=== PATIENT | male | born 1970 | race Caucasian/White ===

== ENCOUNTER 2020-12-24 06:35 | Day surgery (SDC) | payer BC, SELFPAY ==
--- NOTE | 2020-12-23 10:17 | P.CONAN_ITS ---
Documented by User: Ana Maria Pinzon NP 12/23/20 10:18 HPI - Anesthesia Eval Consult details Narrative: 50yo M for Upper Endoscopy and Colonoscopy [facility] Past Medical History Medical History (Updated 12/16/20 @ 08:15 by Natalee Bashir, RN) GERD (gastroesophageal reflux disease) History of kidney stones Iron deficiency anemia PUD (peptic ulcer disease) Surgical History Surgical History (Updated 12/16/20 @ 08:15 by Natalee Bashir, RN) No significant past surgical history Social History Social History (Updated 12/24/20 @ 07:59 by Luciana Weinstein MD) Patient Tobacco Use Status: Never used Tobacco Use of substances other than those prescribed or required for medical reasons: No 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 Are you DNR?: No Advance Directives: No Advance Directives Information Provided: Yes Recently lost weight without trying: No Nutrition Risks: No Nutritional Risk Meds Allergies Allergy/AdvReac Type Severity Reaction Status Date / Time No Known Allergies Allergy Verified 12/16/20 08:16 Home Medications Medication Instructions Recorded Confirmed Last Taken Type ibuprofen 12/16/20 12/16/20 Unknown History Exam Exam Date and Time: December 23, 2020 1017 Assessment and Plan Assessment Anesthesia Assessment: Chart Reviewed Documented by User: Luciana Weinstein MD 12/24/20 08:01 [facility] Past Medical History Medical History (Updated 12/16/20 @ 08:15 by Natalee Bashir RN) GERD (gastroesophageal reflux disease) History of kidney stones Iron deficiency anemia PUD (peptic ulcer disease) Family History Family history of problems with anesthesia: No Surgical History Surgical History (Updated 12/16/20 @ 08:15 by Natalee Bashir, RN) No significant past surgical history History of Problems with Anesthesia: No Social History Social History (Updated 12/24/20 @ 07:59 by Luciana Weinstein MD) Patient Tobacco Use Status: Never used Tobacco Use of substances other than those prescribed or required for medical reasons: No 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 Are you DNR?: No Advance Directives: No Advance Directives Information Provided: Yes Recently lost weight without trying: No Nutrition Risks: No Nutritional Risk Meds Allergies Allergy/AdvReac Type Severity Reaction Status Date / Time No Known Allergies Allergy Verified 12/16/20 08:16 Home Medications Medication Instructions Recorded Confirmed Last Taken Type ibuprofen 12/16/20 12/16/20 Unknown History Exam Height,Weight and Vital Signs: Height 6 ft 2 in Weight 111.13 kg Vital Signs Temp Pulse Resp BP Pulse Ox 12/24/20 06:48 98.2 F 82 16 148/82 H 98 Airway Mallampati Class: III TM Dist: >3cm Neck ROM: Full Heart: RRR Lungs: CTAB Assessment and Plan Final Anesthetic Review Family History of Problems with Anesthesia: No History of Problems with Anesthesia: No NPO: Yes ASA Class: III Final Preanesthetic Review: No Changes in Pt Med Stat, Meds/Allgs Chart Reviewed, Consent Obtained/Reviewed and Anes Risks/Benef Reviewed Patient Risk: Intermediate Procedure Risk: Low Assessment/Block/Sedation in SS: Assess/Block/Sedation-SS Anesthetic Plan Anesthetic Plan: MAC: Disposition: Standard PACU
[2020-12-24 06:45] VITALS: BMI 31.4
[2020-12-24 06:48] VITALS: BP 148/82; PULSE 82; RESP 16; TEMP 36.8; O2SAT 98
[2020-12-24] MEDS: Lactated Ringers 1,000 ML 100 ML IVCONT (07:02)
--- NOTE | 2020-12-24 07:23 | MHC.SHP ---
Pre-Procedural Eval Section A Date of Service: 12/24/20 Section B Chief Complaint: reflux,animia Details of Present Illness: see H&P no changes Relevant Family History (Specify if Yes): No Relevant Social History: None Present Medications: see Short Stay Collaborative assessment Medical History: No relevant PMH History of Previous Operations: No relevant previous surgery Allergies: Allergies Allergy/AdvReac Type Severity Reaction Status Date / Time No Known Allergies Allergy Verified 12/16/20 08:16 Review of Systems Sugical H&P ROS: Negative: Constitution, Cardiovascular, Respiratory, Neurological, Psychiatric, Hem-Onc, Allergic/Immunologic, Gastrointestinal, Genitourinary, Musculoskeletal, Integumentary, Endocrine and Eyes/Ears/Nose/Throat Exam Surgical H&P Exam: Normal: HEENT, Normal: Heart, Normal: Lungs, Normal: Extremities, Normal: Abdomen, Normal: Skin and Normal: Neurological Plan I have reviewed the history and physical and performed a pertinent physical examination on my patient. No changes have occurred unless specified.
--- NOTE | 2020-12-24 08:22 | PM.OP ---
Brief Operative Note Date of Service: 12/24/20 Pre-op diagnosis: [place], GERD Post-op diagnosis: same (gastric and colon polyps) Procedure: EGD, colon Surgeon: Alex Garcia Anesthesia: MAC Was an Maintenance Supervisor Mechanical used for this Procedure?: No Estimated blood loss (mL): 2 Pathology: other (bxs antrum gastric polyps, egj, polyp 65, 20, rectal bxs) Condition: stable Disposition: PACU
[2020-12-24 08:23] VITALS: BP 118/66; PULSE 62; RESP 16; TEMP 36.9; O2SAT 100
[2020-12-24 08:38] VITALS: BP 126/66; PULSE 60; RESP 18; O2SAT 100
--- NOTE | 2020-12-24 09:07 | OP_ITS ---
SURGEON: Alex Garcia MD INDICATIONS: Iron-deficiency anemia, gastroesophageal reflux disease. PREOPERATIVE DIAGNOSIS: POSTOPERATIVE DIAGNOSIS: PROCEDURE PERFORMED: 1. Upper endoscopy with biopsy. 2. Colonoscopy to the terminal ileum with biopsy and snare polypectomy. ESTIMATED BLOOD LOSS: COMPLICATIONS: ANESTHESIA: ASSISTANTS: SPECIMENS: MEDICATIONS: Monitored anesthesia care. DESCRIPTION OF PROCEDURE: The history and physical performed. The risks and benefits of the procedure were explained to the patient. Informed consent was obtained. The patient was placed in the left lateral decubitus position. The Olympus video gastroscope was introduced into the esophagus, stomach, and duodenum. Examination was performed and the scope was removed. He was repositioned for colonoscopy. Digital rectal exam was performed and was found to be normal. The Olympus pediatric video colonoscope was introduced into the rectum and advanced to the cecum without difficulty. The cecum was identified by transillumination, palpation, and identification of ileocecal valve. Examination was performed and the scope was removed. He tolerated both procedures well and was taken to recovery area in stable condition. FINDINGS: UPPER ENDOSCOPY: Esophagus: The esophagus was normal. There was no esophagitis. Biopsies were obtained from the EG junction. Stomach: The stomach showed multiple benign less than 10 mm gastric polyps, mainly in the body and fundus. Two of these were biopsied. Antral biopsies were obtained to rule out H pylori. Duodenum: The bulb and second portion were normal. COLONOSCOPY: The terminal ileum was examined and appeared normal. The visualized colonic mucosa was normal. There was some undigested food material and retained liquid, which limited the sensitivity examination particularly in the descending colon and proximal right colon. This was washed and suctioned as best possible. At 65 cm, was a less than 5 mm sessile polyp was removed with biopsy forceps. At 20 cm, was a pedunculated 10 mm polyp, which was snared and recovered via suction. There was some minor nonspecific erythema in the rectum, likely related to the prep. This was biopsied. No definite colitis was identified. There were few diverticula in the sigmoid. Retroflexed examination showed internal hemorrhoids that were small to moderate in size. IMPRESSION: 1. Gastric polyps. 2. Colon polyps. RECOMMENDATION: Follow up the biopsy results. MD ALEX Garcia/VIKIL / [id number]
== END 2020-12-24 08:56 | disposition home or self-care (01) ==
PROVIDERS: PCP Internal Medicine; Visit Provider Internal Medicine Gastroenterology
PROC: (CPT 45385; principal; 2020-12-24 07:30)
DX: D50.9 Iron deficiency anemia, unspecified (principal); K21.9 Gastro-esophageal reflux disease without esophagitis; K31.7 Polyp of stomach and duodenum; D12.6 Benign neoplasm of colon, unspecified; Z87.11 Personal history of peptic ulcer disease
CPT/HCPCS: 45385; 45380; 43239; 88305; 88342; J3010

== ENCOUNTER 2024-05-03 07:20 | Outpatient (REF) | payer BC, SELFPAY ==
--- NOTE | ~2024-05-03 | XR_ITS ---
CLINICAL HISTORY: PAIN,SWELLING,R O FX 4 view right ankle Comparison: MR - MRI ANKLE WO CONTRAST [id number] - 08/19/15 16:05 EDT Findings: No acute fractures or dislocations. Periarticular osteophyte formation at the tibiotalar, talonavicular, naviculocuneiform, and subtalar joints. Calcaneal spurring. No ankle effusion. No radiopaque foreign body. Well corticated ossific focus at the plantar aspect of the calcaneus. IMPRESSION: 1. No acute findings. This document has been electronically signed by: Gabriel Youssef MD on 05/05/2024 14:42:05
== END 2024-05-03 07:21 | disposition home or self-care (01) ==
LOC: HO.XRAY 07:20
PROVIDERS: PCP Internal Medicine; Visit Provider Internal Medicine
DX: M25.571 Pain in right ankle and joints of right foot (principal)
CPT/HCPCS: 73610

== ENCOUNTER → 2024-05-03 07:30 | Outpatient (BNV) | payer BC, SELFPAY | PROVIDERS: PCP Internal Medicine; Visit Provider Radiology Diagnostic Radiology | DX: M25.571 Pain in right ankle and joints of right foot (principal); M25.471 Effusion, right ankle | CPT/HCPCS: 73610 ==

== ENCOUNTER 2024-09-25 07:28 | Outpatient (REF) | payer BC, SELFPAY ==
--- NOTE | ~2024-09-25 | XR_ITS ---
CLINICAL HISTORY: PAIN AND SWELLING --- Additional Notes or Special Instructions: WO 3 view right ankle Comparison: 05/03/2024 Findings: Bones intact. No dislocations. No significant loss of joint space, osteophytes, or erosions. No ankle effusion. No radiopaque foreign body. IMPRESSION: 1. No acute findings. This document has been electronically signed by: Lopez Fall MD on 09/26/2024 08:44:37
--- NOTE | ~2024-09-25 | XR_ITS ---
CLINICAL HISTORY: PAIN SWELLING --- Additional Notes or Special Instructions: WO 3 view right foot Comparison: None Findings: No fractures or dislocations. No significant loss of joint space, osteophytes, or erosions. No ankle effusion. No radiopaque foreign body. IMPRESSION: 1. No acute findings. This document has been electronically signed by: Lopez Fall MD on 09/26/2024 08:47:17
--- OUTSIDE RECORDS SUMMARY | 2024-09-25 07:32 | XMS_ITS | Clinical Summary ---
Author Organization [facility] ity Address [address] [place] [address] Care Team Providers Care Shellfish Shucker Name Role Phone Unavailable Primary Care Provider Unavailabl e Social History Tobacco Use Types Packs/Day Years Used Date Smoking Tobacco: Never Assessed Sex and Gender Information Value Date Recorded Sex Assigned at Not on file Legal Sex Male 10:24 AM EST Gender Identity Not on file Sexual Orientation Not on file Plan of Treatment Health Maintenance Due Date Last Done Comments DTaP,Tdap,and Td Vaccines (1 - Tdap) 12/18/1987 Hepatitis B Vaccines (1 of 3 - 19+ 3-dose series) 12/18/1987 Pneumococcal Vaccine: 50+ Ye ars (1 of 1 - PCV) 2018 Zoster Vaccines (1 of 2) 2018 Cholesterol Screening (Lipid Panel) 03/28/2022 Colorectal Cancer Screening: Colonoscopy 03/28/2022 Depression Screening 03/28/2022 HIV Screening 03/28/2022 Hepatitis C Screening 03/28/2022 Social Influencers of Health Screening 03/28/2022 COVID-19 Vaccine ( - 2023-2 5 season) 2023 Influenza Vaccine (Season Ended) 2024 HIB Vaccines Aged Out No longer eligi ble based on patient's age to complete this topic HPV Vaccines Aged Out No longer eligi ble based on patient's age to complete this topic Hepatitis A Vaccines Aged Out No long er eligible based on patient's age to complete this topic IPV Vaccines Aged Out No longer eligi ble based on patient's age to complete this topic MMR Vaccines Aged Out No longer eligi ble based on patient's age to complete this topic Meningococcal ACWY Vaccine Aged Out N o longer eligible based on patient's age to complete this topic Meningococcal B Vaccine Aged Out No l onger eligible based on patient's age to complete this topic Pneumococcal Vaccine: Pediat rics (0 to 5 Years) and At-Risk Patients (6 to 64 Years) Aged Out No longer eligible b ased on patient's age to complete this topic RSV Immunization Patients Un leonila 20 months Aged Out No longer eligible b ased on patient's age to complete this topic Varicella Vaccines Aged Out No longer eligible based on patient's age to complete this topic
== END 2024-09-25 07:29 | disposition home or self-care (01) ==
LOC: HO.XRAY 07:28
PROVIDERS: PCP Internal Medicine; Visit Provider Internal Medicine
DX: M25.571 Pain in right ankle and joints of right foot (principal)
CPT/HCPCS: 73610; 73630

== ENCOUNTER → 2024-09-25 07:34 | Outpatient (BNV) | payer BC, SELFPAY | PROVIDERS: PCP Internal Medicine; Visit Provider Specialist | DX: M25.571 Pain in right ankle and joints of right foot (principal); M79.671 Pain in right foot | CPT/HCPCS: 73610; 73630 ==